=== PATIENT | female | born 1995 | race Caucasian/White ===

== ENCOUNTER → 2022-04-19 | Outpatient (CLI) | payer OTHER, SELFPAY ==
[2022-04-19 15:22] LABS: Absolute Lymphocyte Count 2.11 X10^3/uL (0.83-4.51); Absolute Neutrophil Count 7.7 X10^3/uL (2.0-7.7); Basophil# 0.03 X10^3/uL; Basophil% 0.3 % (0-1); Eosinophil# 0.08 X10^3/uL; Eosinophils% 0.8 % (0-5); Hematocrit 39.8 % (37-47); Hemoglobin 13.5 g/dL (12.0-15.0); Lymphocyte # 2.11 X10^3/ul (0.83-4.51); Mean Corp Hgb Conc 33.9 g/dL (32-36); Mean Corpuscular Hgb 29.3 pg (27.0-32.0); Mean Corpuscular Volume 86.3 fL (81-99); Mean Platelet Vol. 10.1 fl (6.2-12.0); Monocyte# 0.57 X10^3/uL; Monocyte% 5.4 % (0-10); NRBC Flagged by Analyzer 0 % (0-5); Neutrophil # 7.68 X10^3/uL (2.7-7.7); Neutrophil % 72.8 % (47-70); Platelet Count 266 K/mm3 (150-450); RBC Distribution Width CV 12.8 % (11.6-14.6); RBC Distribution Width SD 40.1 fl (35.1-43.9); Red Blood Count 4.61 M/mm3 (4.2-5.4); White Blood Count 10.5 K/mm3 (4.4-11.0)
[2022-04-19 16:55] LABS: HIV - WCH Non-Reactive (Nonreactive); Hepatitis B Surface Antigen Non-Reactive (Nonreactive); Hepatitis C Antibody Non-Reactive (Nonreactive); Rubella IgG Reactive (Nonreactive); Syphilis Antibodies Non-reactive
[2022-04-25 11:26] LABS: Chlamydia By Nucleic Acid AMP Negative (Negative)
[2022-04-25 18:10] LABS: HPV Reflexed? NOT INDICATED
[2022-04-25 18:13] LABS: Gonococcus By Nucleic Acid AMP Negative (Negative)
== END | disposition home or self-care (01) ==
LOC: WOBLAB 15:06
PROVIDERS: PCP Family Medicine; Visit Provider Student in an Organized Health Care Education/Training Program
DX: Z34.81 Encounter for supervision of other normal pregnancy, first trimester (principal); Z12.4 Encounter for screening for malignant neoplasm of cervix; Z11.3 Encounter for screening for infections with a predominantly sexual mode of transmission
CPT/HCPCS: 36415; 85025; 86703; 86762; 86780; 86803; 87086; 87088; 87340; 87491; 87591; 88175; G0145

== ENCOUNTER → 2022-08-25 | Outpatient (CLI) | payer OTHER, SELFPAY ==
[2022-08-25 09:11] LABS: Absolute Lymphocyte Count 2.19 X10^3/uL (0.83-4.51); Basophil# 0.03 X10^3/uL; Basophil% 0.3 % (0-1); Eosinophil# 0.11 X10^3/uL; Eosinophils% 0.9 % (0-5); Hematocrit 37.4 % (37-47); Hemoglobin 12.8 g/dL (12.0-15.0); Lymphocyte # 2.19 X10^3/ul (0.83-4.51); Lymphocyte % 18.3 % (19-41); Mean Corp Hgb Conc 34.2 g/dL (32-36); Mean Corpuscular Hgb 30.3 pg (27.0-32.0); Mean Corpuscular Volume 88.4 fL (81-99); Mean Platelet Vol. 9.9 fl (6.2-12.0); Monocyte# 0.41 X10^3/uL; Monocyte% 3.4 % (0-10); NRBC Flagged by Analyzer 0 % (0-5); Neutrophil # 9.02 X10^3/uL (2.7-7.7); Neutrophil % 75.2 % (47-70); Platelet Count 246 K/mm3 (150-450); RBC Distribution Width CV 13.2 % (11.6-14.6); RBC Distribution Width SD 42.9 fl (35.1-43.9); Red Blood Count 4.23 M/mm3 (4.2-5.4)
[2022-08-25 09:31] LABS: Glucose Challenge Gest 1H 50g 144 mg/dL (70-140)
== END | disposition home or self-care (01) ==
LOC: WOBLAB 08:40
PROVIDERS: PCP Family Medicine; Visit Provider Obstetrics & Gynecology
DX: Z34.82 Encounter for supervision of other normal pregnancy, second trimester (principal)
CPT/HCPCS: 36415; 82950; 85025

== ENCOUNTER → 2022-09-02 | Outpatient (CLI) | payer OTHER, SELFPAY ==
[2022-09-02 09:35] LABS: Glucose GTT-Gestation. Fasting 94 mg/dL (<105)
[2022-09-02 10:38] LABS: Glucose GTT-Gestational 1 Hr 178 mg/dL (<190)
[2022-09-02 12:32] LABS: Glucose GTT-Gestational 2 Hr 159 mg/dL (<165)
[2022-09-02 13:21] LABS: Glucose GTT-Gestational 3 Hr 128 L (<145)
== END | disposition home or self-care (01) ==
LOC: WOBLAB 08:39
PROVIDERS: PCP Family Medicine; Visit Provider Obstetrics & Gynecology
DX: Z34.82 Encounter for supervision of other normal pregnancy, second trimester (principal)
CPT/HCPCS: 36415; 82951; 82952

== ENCOUNTER → 2022-09-23 | Outpatient (CLI) | payer OTHER, SELFPAY ==
[2022-09-23 09:43] LABS: Absolute Lymphocyte Count 2.43 X10^3/uL (0.83-4.51); Basophil# 0.03 X10^3/uL; Basophil% 0.2 % (0-1); Eosinophils% 0.8 % (0-5); Hematocrit 37.8 % (37-47); Hemoglobin 12.9 g/dL (12.0-15.0); Lymphocyte # 2.43 X10^3/ul (0.83-4.51); Lymphocyte % 19.7 % (19-41); Mean Corp Hgb Conc 34.1 g/dL (32-36); Mean Corpuscular Hgb 29.3 pg (27.0-32.0); Mean Corpuscular Volume 85.9 fL (81-99); Mean Platelet Vol. 10.3 fl (6.2-12.0); Monocyte# 0.63 X10^3/uL; Monocyte% 5.1 % (0-10); NRBC Flagged by Analyzer 0 % (0-5); Neutrophil # 8.97 X10^3/uL (2.7-7.7); Neutrophil % 72.8 % (47-70); Platelet Count 265 K/mm3 (150-450); RBC Distribution Width CV 13.1 % (11.6-14.6); RBC Distribution Width SD 40.2 fl (35.1-43.9); White Blood Count 12.3 K/mm3 (4.4-11.0)
[2022-09-23 10:41] LABS: Protein:Creat Ratio 428 mg/g CRE (0-200)
[2022-09-23 11:19] LABS: ALB/GLOB Ratio 0.8 RATIO (0.9-2.4); AST(SGOT) 13 U/L (15-37); Alanine Aminotransfer ALT/SGPT 19 U/L (13-56); Alkaline Phosphatase 109 U/L (45-117); Anion Gap 8 (5-15); BUN 7 mg/dL (7-18); BUN/Creat Ratio 12.1 RATIO (10-20); Calcium,Total 9.1 mg/dL (8.5-10.1); Chloride 107 mmol/L (98-107); Creatinine, Serum 0.58 mg/dL (0.55-1.02); EST Glomerular Filtration Rate 130 mL/min (>60); Est Glom Filt Rate - Afr Amer 157 mL/min (>60); Globulin 3.7 g/dL (2.2-4.2); Glucose 90 mg/dL (74-106); LDH 165 U/L (84-246); Potassium 3.8 mmol/L (3.5-5.1); Protein, Total 6.7 g/dL (6.4-8.2); Sodium Level 137 mmol/L (136-145)
== END | disposition home or self-care (01) ==
LOC: WOBLAB 09:21
PROVIDERS: PCP Family Medicine; Visit Provider Student in an Organized Health Care Education/Training Program
DX: Z34.82 Encounter for supervision of other normal pregnancy, second trimester (principal)
CPT/HCPCS: 36415; 80053; 82570; 83615; 84156; 85025; 86850; 87086; 87088

== ENCOUNTER → 2022-10-19 | Outpatient (CLI) | payer OTHER, SELFPAY ==
[2022-10-19 15:40] LABS: Hematocrit 36.9 % (37-47); Hemoglobin 12.3 g/dL (12.0-15.0); Mean Corp Hgb Conc 33.3 g/dL (32-36); Mean Corpuscular Hgb 28.3 pg (27.0-32.0); Mean Platelet Vol. 10.8 fl (6.2-12.0); Platelet Count 275 K/mm3 (150-450); RBC Distribution Width CV 12.8 % (11.6-14.6); RBC Distribution Width SD 39.1 fl (35.1-43.9); Red Blood Count 4.34 M/mm3 (4.2-5.4); White Blood Count 11.5 K/mm3 (4.4-11.0)
[2022-10-19 15:51] LABS: ALB/GLOB Ratio 0.8 RATIO (0.9-2.4); AST(SGOT) 14 U/L (15-37); Alanine Aminotransfer ALT/SGPT 22 U/L (13-56); Albumin, Serum 3.1 g/dL (3.2-5.0); Alkaline Phosphatase 160 U/L (45-117); Anion Gap 6 (5-15); BUN 6 mg/dL (7-18); BUN/Creat Ratio 10.2 RATIO (10-20); Calcium,Total 9.3 mg/dL (8.5-10.1); Chloride 109 mmol/L (98-107); Creatinine, Serum 0.59 mg/dL (0.55-1.02); EST Glomerular Filtration Rate 128 mL/min (>60); Est Glom Filt Rate - Afr Amer 155 mL/min (>60); Globulin 3.9 g/dL (2.2-4.2); Glucose 91 mg/dL (74-106); LDH 168 U/L (84-246); Potassium 3.8 mmol/L (3.5-5.1); Sodium Level 139 mmol/L (136-145)
== END | disposition home or self-care (01) ==
LOC: WOBLAB 14:00
PROVIDERS: PCP Family Medicine; Visit Provider Student in an Organized Health Care Education/Training Program
DX: Z34.03 Encounter for supervision of normal first pregnancy, third trimester (principal)
CPT/HCPCS: 36415; 80053; 83615; 85027

== ENCOUNTER → 2022-10-24 | Outpatient (CLI) | payer OTHER, SELFPAY ==
[2022-10-24 13:08] LABS: Absolute Lymphocyte Count 2.52 X10^3/uL (0.83-4.51); Absolute Neutrophil Count 8.6 X10^3/uL (2.0-7.7); Basophil# 0.03 X10^3/uL; Basophil% 0.3 % (0-1); Eosinophil# 0.06 X10^3/uL; Eosinophils% 0.5 % (0-5); Hematocrit 35.6 % (37-47); Lymphocyte # 2.52 X10^3/ul (0.83-4.51); Lymphocyte % 21.1 % (19-41); Mean Corp Hgb Conc 33.7 g/dL (32-36); Mean Corpuscular Hgb 28.8 pg (27.0-32.0); Mean Corpuscular Volume 85.4 fL (81-99); Mean Platelet Vol. 10.8 fl (6.2-12.0); Monocyte# 0.67 X10^3/uL; Monocyte% 5.6 % (0-10); NRBC Flagged by Analyzer 0 % (0-5); Neutrophil # 8.56 X10^3/uL (2.7-7.7); Neutrophil % 71.4 % (47-70); Platelet Count 248 K/mm3 (150-450); RBC Distribution Width CV 13.2 % (11.6-14.6); RBC Distribution Width SD 40.8 fl (35.1-43.9); Red Blood Count 4.17 M/mm3 (4.2-5.4)
[2022-10-24 13:29] LABS: ALB/GLOB Ratio 0.9 RATIO (0.9-2.4); AST(SGOT) 15 U/L (15-37); Alanine Aminotransfer ALT/SGPT 18 U/L (13-56); Albumin, Serum 3.1 g/dL (3.2-5.0); Alkaline Phosphatase 165 U/L (45-117); Anion Gap 9 (5-15); BUN 4 mg/dL (7-18); BUN/Creat Ratio 7.4 RATIO (10-20); Calcium,Total 9.5 mg/dL (8.5-10.1); Chloride 108 mmol/L (98-107); Creatinine, Serum 0.54 mg/dL (0.55-1.02); EST Glomerular Filtration Rate 142 mL/min (>60); Est Glom Filt Rate - Afr Amer 172 mL/min (>60); Globulin 3.6 g/dL (2.2-4.2); Glucose 84 mg/dL (74-106); LDH 187 U/L (84-246); Potassium 3.9 mmol/L (3.5-5.1); Protein, Total 6.7 g/dL (6.4-8.2); Sodium Level 139 mmol/L (136-145)
== END | disposition home or self-care (01) ==
LOC: WOBLAB 11:14
PROVIDERS: PCP Family Medicine; Visit Provider Student in an Organized Health Care Education/Training Program
DX: O14.93 Unspecified pre-eclampsia, third trimester (principal); Z3A.00 Weeks of gestation of pregnancy not specified
CPT/HCPCS: 36415; 80053; 83615; 85025

== ENCOUNTER → 2022-10-31 | Outpatient (CLI) | payer OTHER, SELFPAY ==
[2022-10-31 17:16] LABS: Absolute Lymphocyte Count 2.68 X10^3/uL (0.83-4.51); Absolute Neutrophil Count 8.1 X10^3/uL (2.0-7.7); Basophil# 0.04 X10^3/uL; Basophil% 0.3 % (0-1); Eosinophil# 0.08 X10^3/uL; Eosinophils% 0.7 % (0-5); Hematocrit 37.3 % (37-47); Hemoglobin 12.3 g/dL (12.0-15.0); Lymphocyte # 2.68 X10^3/ul (0.83-4.51); Lymphocyte % 22.9 % (19-41); Mean Corpuscular Hgb 27.6 pg (27.0-32.0); Mean Corpuscular Volume 83.8 fL (81-99); Mean Platelet Vol. 11.3 fl (6.2-12.0); Monocyte# 0.64 X10^3/uL; Monocyte% 5.5 % (0-10); NRBC Flagged by Analyzer 0 % (0-5); Neutrophil # 8.09 X10^3/uL (2.7-7.7); Neutrophil % 69.3 % (47-70); Platelet Count 276 K/mm3 (150-450); RBC Distribution Width CV 13.1 % (11.6-14.6); RBC Distribution Width SD 39.5 fl (35.1-43.9); Red Blood Count 4.45 M/mm3 (4.2-5.4); White Blood Count 11.7 K/mm3 (4.4-11.0)
[2022-10-31 17:29] LABS: ALB/GLOB Ratio 0.7 RATIO (0.9-2.4); AST(SGOT) 11 U/L (15-37); Alanine Aminotransfer ALT/SGPT 15 U/L (13-56); Albumin, Serum 2.9 g/dL (3.2-5.0); Alkaline Phosphatase 184 U/L (45-117); Anion Gap 10 (5-15); BUN 4 mg/dL (7-18); BUN/Creat Ratio 6.1 RATIO (10-20); Calcium,Total 8.9 mg/dL (8.5-10.1); Chloride 108 mmol/L (98-107); Creatinine, Serum 0.65 mg/dL (0.55-1.02); EST Glomerular Filtration Rate 114 mL/min (>60); Est Glom Filt Rate - Afr Amer 138 mL/min (>60); Glucose 123 mg/dL (74-106); LDH 159 U/L (84-246); Potassium 3.6 mmol/L (3.5-5.1); Protein, Total 6.9 g/dL (6.4-8.2); Sodium Level 139 mmol/L (136-145)
== END | disposition home or self-care (01) ==
LOC: WOBLAB 16:10
PROVIDERS: PCP Family Medicine; Visit Provider Student in an Organized Health Care Education/Training Program
DX: O14.93 Unspecified pre-eclampsia, third trimester (principal)
CPT/HCPCS: 36415; 80053; 83615; 85025

== ENCOUNTER → 2022-11-08 | Outpatient (CLI) | payer OTHER, SELFPAY ==
[2022-11-08 11:48] LABS: Absolute Lymphocyte Count 2.72 X10^3/uL (0.83-4.51); Absolute Neutrophil Count 9.5 X10^3/uL (2.0-7.7); Basophil# 0.05 X10^3/uL; Basophil% 0.4 % (0-1); Eosinophil# 0.09 X10^3/uL; Eosinophils% 0.7 % (0-5); Hematocrit 38.4 % (37-47); Hemoglobin 12.4 g/dL (12.0-15.0); Lymphocyte # 2.72 X10^3/ul (0.83-4.51); Lymphocyte % 20.6 % (19-41); Mean Corp Hgb Conc 32.3 g/dL (32-36); Mean Corpuscular Hgb 27.4 pg (27.0-32.0); Monocyte# 0.74 X10^3/uL; Monocyte% 5.6 % (0-10); NRBC Flagged by Analyzer 0 % (0-5); Neutrophil # 9.49 X10^3/uL (2.7-7.7); Neutrophil % 71.6 % (47-70); Platelet Count 269 K/mm3 (150-450); RBC Distribution Width CV 13.2 % (11.6-14.6); RBC Distribution Width SD 40.9 fl (35.1-43.9); Red Blood Count 4.52 M/mm3 (4.2-5.4); White Blood Count 13.2 K/mm3 (4.4-11.0)
[2022-11-08 13:19] LABS: ALB/GLOB Ratio 0.9 RATIO (0.9-2.4); AST(SGOT) 16 U/L (15-37); Alanine Aminotransfer ALT/SGPT 16 U/L (13-56); Albumin, Serum 3.3 g/dL (3.2-5.0); Alkaline Phosphatase 194 U/L (45-117); Anion Gap 9 (5-15); BUN 5 mg/dL (7-18); BUN/Creat Ratio 8.8 RATIO (10-20); Calcium,Total 9.8 mg/dL (8.5-10.1); Chloride 105 mmol/L (98-107); Creatinine, Serum 0.57 mg/dL (0.55-1.02); EST Glomerular Filtration Rate 133 mL/min (>60); Est Glom Filt Rate - Afr Amer 161 mL/min (>60); Globulin 3.7 g/dL (2.2-4.2); Glucose 76 mg/dL (74-106); LDH 169 U/L (84-246); Potassium 3.9 mmol/L (3.5-5.1); Sodium Level 136 mmol/L (136-145)
== END | disposition home or self-care (01) ==
LOC: WOBLAB 11:24
PROVIDERS: PCP Family Medicine; Visit Provider Student in an Organized Health Care Education/Training Program
DX: O14.93 Unspecified pre-eclampsia, third trimester (principal)
CPT/HCPCS: 36415; 80053; 83615; 85025

== ENCOUNTER → 2022-11-15 | Outpatient (CLI) | payer OTHER, SELFPAY ==
[2022-11-15 17:22] LABS: Absolute Lymphocyte Count 2.48 X10^3/uL (0.83-4.51); Basophil# 0.03 X10^3/uL; Basophil% 0.3 % (0-1); Eosinophil# 0.04 X10^3/uL; Eosinophils% 0.3 % (0-5); Hemoglobin 11.6 g/dL (12.0-15.0); Lymphocyte # 2.48 X10^3/ul (0.83-4.51); Lymphocyte % 21.6 % (19-41); Mean Corp Hgb Conc 32.2 g/dL (32-36); Mean Corpuscular Hgb 27.2 pg (27.0-32.0); Mean Corpuscular Volume 84.3 fL (81-99); Mean Platelet Vol. 11.2 fl (6.2-12.0); Monocyte# 0.75 X10^3/uL; Monocyte% 6.5 % (0-10); NRBC Flagged by Analyzer 0 % (0-5); Neutrophil # 8.04 X10^3/uL (2.7-7.7); Neutrophil % 70.3 % (47-70); Platelet Count 238 K/mm3 (150-450); RBC Distribution Width CV 13.4 % (11.6-14.6); Red Blood Count 4.27 M/mm3 (4.2-5.4); White Blood Count 11.5 K/mm3 (4.4-11.0)
[2022-11-15 18:45] LABS: ALB/GLOB Ratio 0.9 RATIO (0.9-2.4); AST(SGOT) 12 U/L (15-37); Alanine Aminotransfer ALT/SGPT 13 U/L (13-56); Alkaline Phosphatase 194 U/L (45-117); Anion Gap 6 (5-15); BUN 6 mg/dL (7-18); BUN/Creat Ratio 8.6 RATIO (10-20); Calcium,Total 9.1 mg/dL (8.5-10.1); Chloride 109 mmol/L (98-107); EST Glomerular Filtration Rate 105 mL/min (>60); Est Glom Filt Rate - Afr Amer 127 mL/min (>60); Globulin 3.5 g/dL (2.2-4.2); Glucose 99 mg/dL (74-106); LDH 169 U/L (84-246); Potassium 3.9 mmol/L (3.5-5.1); Protein, Total 6.5 g/dL (6.4-8.2); Sodium Level 140 mmol/L (136-145)
[2022-11-15 19:09] LABS: Syphilis Antibodies Non-reactive
== END | disposition home or self-care (01) ==
LOC: WOBLAB 16:56
PROVIDERS: PCP Family Medicine; Visit Provider Student in an Organized Health Care Education/Training Program
DX: Z34.83 Encounter for supervision of other normal pregnancy, third trimester (principal)
CPT/HCPCS: 36415; 80053; 83615; 85025; 86780; 87081

== ENCOUNTER 2022-11-21 19:00 | Inpatient (IN) | payer OTHER, SELFPAY ==
[2022-11-21 19:26] VITALS: BMI 38.9
[2022-11-21 19:41] LABS: Absolute Lymphocyte Count 2.98 X10^3/uL (0.83-4.51); Absolute Neutrophil Count 8.7 X10^3/uL (2.0-7.7); Basophil# 0.02 X10^3/uL; Basophil% 0.2 % (0-1); Eosinophil# 0.04 X10^3/uL; Eosinophils% 0.3 % (0-5); Hematocrit 36.5 % (37-47); Hemoglobin 11.9 g/dL (12.0-15.0); Lymphocyte # 2.98 X10^3/ul (0.83-4.51); Lymphocyte % 23.9 % (19-41); Mean Corp Hgb Conc 32.6 g/dL (32-36); Mean Corpuscular Hgb 27.2 pg (27.0-32.0); Mean Corpuscular Volume 83.5 fL (81-99); Mean Platelet Vol. 11.4 fl (6.2-12.0); Monocyte% 4.8 % (0-10); NRBC Flagged by Analyzer 0 % (0-5); Neutrophil # 8.72 X10^3/uL (2.7-7.7); Neutrophil % 69.8 % (47-70); Platelet Count 257 K/mm3 (150-450); RBC Distribution Width CV 13.6 % (11.6-14.6); RBC Distribution Width SD 41.4 fl (35.1-43.9); Red Blood Count 4.37 M/mm3 (4.2-5.4); White Blood Count 12.5 K/mm3 (4.4-11.0)
[2022-11-21 20:10] VITALS: BP 146/92; PULSE 115; TEMP 37.1
[2022-11-21] MEDS: miSOPROStol 25 MCG TABLET VAGINAL (20:21)
[2022-11-21 20:32] LABS: ALB/GLOB Ratio 0.8 RATIO (0.9-2.4); AST(SGOT) 11 U/L (15-37); Alanine Aminotransfer ALT/SGPT 13 U/L (13-56); Albumin, Serum 2.9 g/dL (3.2-5.0); Alkaline Phosphatase 195 U/L (45-117); Anion Gap 9 (5-15); BUN 7 mg/dL (7-18); BUN/Creat Ratio 10.3 RATIO (10-20); Chloride 108 mmol/L (98-107); Creatinine, Serum 0.68 mg/dL (0.55-1.02); EST Glomerular Filtration Rate 109 mL/min (>60); Est Glom Filt Rate - Afr Amer 132 mL/min (>60); Estimated Creatinine Clearance 109.84 ml/min; Globulin 3.5 g/dL (2.2-4.2); Glucose 108 mg/dL (74-106); LDH 143 U/L (84-246); Potassium 3.7 mmol/L (3.5-5.1); Protein, Total 6.4 g/dL (6.4-8.2); Sodium Level 140 mmol/L (136-145)
[2022-11-22] VITALS (55 sets, daily range): BP systolic 102–147; BP diastolic 52–105; PULSE 64–117; TEMP 36.8–38.8; O2SAT 94–100
[2022-11-22] MEDS: Lactated Ringers 1,000 ML 50 ML IV (00:38)
[2022-11-22] MEDS: LACTATED RINGERS 500 ML 999 ML IV ×4 (00:38→13:02)
[2022-11-22] MEDS: fentaNYL-bupivacaine (epidural) 100 ML BAG EPIDURAL ×4 (06:35→20:54)
--- NOTE | 2022-11-22 07:10 | PCM.HP.BLA ---
History and Physical Date of Admission: 11/21/22 Chief complaint: Induction of labor preeclampsia without severe features History present illness: 27-year-old G1, P0 at 37 weeks and 2 days with ALEXIS 12/11/2022 arrived on 11/21/2022 at 7 PM for induction of labor with preeclampsia without severe features. Today with no headache visual changes, chest pain, shortness of breath, nausea vomiting, right upper quadrant pain. Patient states good movement. is complicated by preeclampsia without severe features Obstetric history: G1: Current Past medical history: Preeclampsia without severe features Medications: vitamin Allergies: No known drug allergies Past surgical history: Tailbone surgery Family history: Denies his DVT or PE Social history: Former smoker, denies alcohol or drug use Review of systems: Besides above pertinent positives a full review of systems was performed and found to be negative Physical exam: Vitals: Pulse 105 SPO2 98% on room air General: Normal-appearing no acute distress HEENT: Normocephalic atraumatic no cervical adenopathy Cardiac/respiratory: No use of accessory muscles, nonlabored breathing Abdomen: Soft, nontender, gravid Extremities: No peripheral edema normal peripheral pulses Psych: Normal affect normal demeanor nonpressured speech Labs: White blood cell count 12.5 hemoglobin 11.9 hematocrit 36.5% platelets 257. Sodium 140 potassium 3.7 creatinine 0.68 total bilirubin 0.3 AST 11 ALT 13 LDH 143. Blood type O- antibody negative. Assessment plan: 27-year-old G1, P0 at 37 weeks and 2 days that arrived for induction of labor yesterday for preeclampsia without severe features. Patient overnight was Cytotec induction. Received 1 dose of Cytotec then switch to Pitocin after being called by RN for frequent contractions. Patient with discomfort with contractions elected for epidural. Patient now comfortable with epidural. Overnight called by nursing with a severe range blood pressure, nursing stated nonpersistent. Patient asymptomatic. We will continue to monitor and if persistent severe range blood pressures or symptomatic will treat appropriately. Continue to titrate Pitocin. GBS negative
[2022-11-22] MEDS: Lactated Ringers 1,000 ML 200 ML IV ×4 (08:11→23:22)
[2022-11-22] MEDS: Oxytocin 15 Units/NS 250ml 15 UNITS/250 ML IV.SOLN 2 UNITS IV (08:11)
[2022-11-22] MEDS: Ondansetron 4 MG/2 ML Vial IV (12:59)
[2022-11-22] MEDS: 0.9% Saline Lock 10 ML Syringe IV (13:00)
[2022-11-22] MEDS: 0.9% Normal Saline Single 100 ML IV.SOLN. INTRA-UTER (17:33)
--- NOTE | 2022-11-22 17:43 | PCM.PN.OB ---
Subjective Subjective Patient seen and examined. Comfortable with epidural. Objective Data Objective Data Vital Signs: Vital Signs Temp Pulse BP Pulse Ox 99.0 F 106 H 140/81 H 97 11/22/22 17:08 11/22/22 17:08 11/22/22 17:08 11/22/22 17:09 Weight: 106.141 kg Body Mass Index (BMI) 38.9 Intake & Output: Intake and Output for Last 24 Hours 11/20/22 11/21/22 11/22/22 23:59 23:59 23:59 Intake Total 3736.47 / 3736.47 Output Total 1000 / 1000 Balance 2736.47 / 2736.47 Lab / Micro Data Result Diagrams: 11/21/22 19:30 11/21/22 20:00 Labs: Laboratory Results - last 24 hr 11/21/22 19:30: WBC 12.5 H, RBC 4.37, Hgb 11.9 L, Hct 36.5 L, MCV 83.5, MCH 27.2, MCHC 32.6, RDW Std Deviation 41.4, RDW Coeff of Millie 13.6, Plt Count 257, MPV 11.4, Immature Gran % (Auto) 1.000 H, Neut % (Auto) 69.8, Lymph % (Auto) 23.9, Bollinger % (Auto) 4.8, Eos % (Auto) 0.3, Baso % (Auto) 0.2, Absolute Neuts (auto) 8.7 H, Absolute Lymphs (auto) 2.98, Nucleated RBC % 0 11/21/22 19:30: Blood Type O NEGATIVE, Antibody Screen TNP 11/21/22 19:30: Antibody Screen NEGATIVE 11/21/22 20:00: Sodium 140, Potassium 3.7, Chloride 108 H, Carbon Dioxide 23.0, Anion Gap 9, BUN 7, Creatinine 0.68, Estim Creat Clear Calc 109.84, Est GFR (MDRD) Af Amer 132, Est GFR (MDRD) Non-Af 109, BUN/Creatinine Ratio 10.3, Glucose 108 H, Calcium 9.0, Total Bilirubin 0.30, AST 11 L, ALT 13, Alkaline Phosphatase 195 H, Lactate Dehydrogenase 143, Total Protein 6.4, Albumin 2.9 L, Globulin 3.5, Albumin/Globulin Ratio 0.8 L Physical Exam Const alert, oriented x3 and no apparent distress Resp normal respiratory effort Cardio regular rate GI soft to palpation and non-tender Inspection: gravid Narrative: 1.5/60/-3, Choudhury bulb placed Extremity no pedal edema Neuro moves all extremities, no focal motor deficits and no sensory deficits noted NST FHR Rate Baby A Baseline: 145 Variability:: Moderate Accelerations:: 15 x 15 Decelerations:: None FHR Category:: Category I Assessment & Plan (1) Pre-eclampsia: PLAN: 27-year-old G1 at 37/2 weeks admitted for induction of labor for preeclampsia without severe features. Patient comfortable with epidural. Category 1 tracing. Choudhury bulb placed. Plan for AROM in morning. Plan reviewed with patient and bedside nurse. All questions answered.
[2022-11-22] MEDS: Acetaminophen 500 MG Tablet PO (20:54)
[2022-11-23] VITALS (47 sets, daily range): BP systolic 109–156; BP diastolic 55–90; PULSE 76–208; RESP 12–24; TEMP 36.3–39.9; O2SAT 92–100
[2022-11-23] MEDS: fentaNYL-bupivacaine (epidural) 100 ML BAG EPIDURAL (01:29)
[2022-11-23] MEDS: Acetaminophen 500 MG Tablet PO (02:50)
[2022-11-23] MEDS: LACTATED RINGERS 500 ML 999 ML IV (02:52)
[2022-11-23] MEDS: Sodium Citrate/Citric Acid 30 ML UDC PO (05:36)
--- NOTE | 2022-11-23 05:59 | PN.OBGYN_ITS ---
Subjective Subjective Patient very uncomfortable with contractions. Has hot spot left hip and a lot of rectal pressure with contractions. No longer tolerating. Objective Data Objective Data Vital Signs: Vital Signs Temp Pulse BP Pulse Ox 100.9 F H 129 H 121/74 H 95 11/23/22 05:57 11/23/22 05:55 11/23/22 05:55 11/23/22 05:55 Weight: 106.141 kg Body Mass Index (BMI) 38.9 Intake & Output: Intake and Output for Last 24 Hours 11/21/22 11/22/22 11/23/22 23:59 23:59 23:59 Intake Total 5539.80 / 5539.80 1767.725 / 1767.725 Output Total 1780 / 1780 Balance 3759.80 / 3759.80 1767.725 / 1767.725 Lab / Micro Data Attestation: I reviewed the patient's lab results. Result Diagrams: 11/21/22 19:30 11/21/22 20:00 Physical Exam Const alert and oriented x3 Constitutional Narrative: Uncomfortable with contractions HEENT normocephalic Resp normal respiratory effort GI soft to palpation and non-tender Inspection: gravid Extremity Extremity Narrative: Plus 1 edema Neuro moves all extremities, no focal motor deficits and no sensory deficits noted NST FHR Rate Baby A Baseline: 155 Variability:: Moderate Accelerations:: 15 x 15 Decelerations:: None (rare variable) FHR Category:: Category I Assessment & Plan (1) Pre-eclampsia: PLAN: 27-year-old G1 at 37/3 weeks admitted for induction of labor for pre eclampsia without severe features. Now with diagnosis of chorioamnionitis based on persistent elevated maternal fever, maternal tachycardia, intermittent tachycardia. Patient is no longer tolerating contractions. Desires primary section. We will plan for primary section in an urgent, nonemergent fashion. All risk, benefits, alternatives discussed with the patient. Risk include but are not limited to: Risk of bleeding to the point transfusion fusion, infection, injury to surrounding tissue including bowel/bladder potentially requiring prolonged Choudhury catheter use, VTE, ICU admission. Patient understands that she has infection at this time which places her at a greater risk with section. Will give preoperative antibiotics: Ampicillin 2 g, clindamycin 900 mg, azithromycin 500 mg. She did receive gentamicin 5 mg/kg around 2 AM today which is dosed every 24 hours. We will continue antibiotics for 24 hours postoperatively. All questions were answered. Consent signed.
[2022-11-23] MEDS: Clindamycin 900 MG/50 ML BAG 75 MG IV ×3 (06:31→21:50)
--- NOTE | 2022-11-23 07:18 | EX.PCM.OBRPT ---
Details Operative Information Date of Procedure: 11/23/22 Pre-Operative Diagnosis: Lemos intrauterine , preeclampsia without severe features, chorioamnionitis, elective section Post-Operative Diagnosis: [place] intrauterine , preeclampsia without severe features, chorioamnionitis, elective section Indications Narrative: 27-year-old G1, P0 at 37/3 weeks who was admitted for induction of labor for Pre-eclampsia without severe features. Complicated by chorioamnionitis. Patient not tolerating labor, desired primary section. All risk, benefits, alternatives discussed patient risk include were not limited to: Risk of bleeding to the point of transfusion, infection, and treated surrounding tissue including bowel/bladder potentially requiring prolonged Choudhury catheter use, VTE, ICU admission. Patient were consented. Procedure Type: low transverse Type of Anesthesia: Spinal Estimated Blood Loss: 700cc Fluids Replaced: 1500cc Findings Description of Procedure: Patient taken the operating room and spinal placed. Patient placed in the supine position with left lateral tilt. Prepped and draped in the usual sterile fashion. Pfannenstiel skin incision made with scalpel and carried down through subcutaneous tissue. Fascia nicked on either side of the midline and extended bilaterally. Shoaib clamps placed on the superior fascial edge which was tented up and underlying rectus muscles were dissected off bluntly and sharply at midline. Shoaib clamps moved to the inferior fascial edge and dissection of rectus muscles were completed in a similar fashion. Hemostats utilized separate rectus muscle superiorly and peritoneum entered sharply with Metzenbaum scissors and extended bluntly. Bladder blade placed. Vesicouterine peritoneum identified and bladder flap created with Metzenbaum scissors. Low transverse uterine incision made with scalpel and extended bluntly. Hand placed into the uterine cavity and had elevated to the level of the hysterotomy. With the assistance of gentle fundal pressure head delivered followed by body. No nuchal cord. Cord clamped and cut and baby handed to nursing. Manual extraction of placenta. Uterus exteriorized and cleared of all clots with lap. Small extension at the left edge of the hysterotomy noted, closed with suture. Hysterotomy closed with a running locking stitch in a vertical imbricating stitch. Some oozing noted at the extension, which was stopped with 2 [id number]. Hysterotomy hemostatic. Uterus replaced into the abdomen. Hysterotomy inspected, 1 [id number] stitch placed at the left corner. Hysterotomy hemostatic. Peritoneum closed with a running stitch. Fascia closed with running stitch. Subcutaneous tissue reapproximated. Skin closed with running subcuticular stitch. At the end of procedure all needle, lap, sponge counts were correct. Urine output: 50 cc clear urine. A Gender: Male (1 minute): 9 (5 minute): 9 Complications Complications: None
--- NOTE | 2022-11-23 07:20 | PLAC_PTH ---
PATIENT: JENNIFER MURRY LOC: [facility] U#:[id number] AGE/SX: 27/F ROOM: WP005 RE11/21/[address]: Dr. Palmira Mccall DO : 1995 BED: 1 DIS: 11/25/2022 SPEC #: [id number] RECD: 11/23/22 08:11 STATUS: JOE REMilagro #: [id number] WILLIAM: 11/23/22 07:[address]: Palmira Mccall DEPT: SURGICAL PATHOLOGY RECD BY: Cecy Estrada ENTERED: 11/23/22 10:56 SP TYPE: PLACENTA OTHR DR: Dr. Chucky Hammond MD Tissues: Placenta, NOS Procedures: Surgery Specimen Level V HEADER OPERATION: Primary section PRE-OP DIAGNOSIS: Delivery TISSUE SUBMITTED: Placenta MICROSCOPIC DIAGNOSIS Placenta: Placental disc - third trimester placenta (583 gm). - Focal area of intraparenchymal hemorrhage (1.5 cm in greatest dimension). Membranes - no pathologic diagnosis. Umbilical cord - three blood vessels and no pathologic diagnosis. SJ:manolo 11/25/2022 MICROSCOPIC DESCRIPTION Slides are reviewed. GROSS DESCRIPTION SPECIMEN: PLACENTA / CLINICAL INFORMATION: A. Weight: 3.55 kg B. Gestational Age: 37 weeks C. Sex: Male PLACENTAL WEIGHT (POST FIXATION): 583 gm PLACENTAL DIMENSIONS: 18 x 17 x 3 cm PLACENTAL SHAPE: Usual ovoid PLACENTAL WEIGHT FOR GESTATIONAL AGE: Within 10-99th percentile (over/under percentile) MEMBRANES - Present A. Insertion: Marginal B. Site of rupture from edge: At edge of placental disc C. Color of membrane: Ryan-calles D. Abnormalities: None UMBILICAL CORD - Present A. Color: Ryan-calles B. Insertion: Eccentric C. Length: 54 cm D. Diameter: 1.5 cm E. Number of vessels: Three F. Abnormalities: None PLACENTAL DISC - Present A. Color of surface: Ryan-calles B. surface abnormalities: None C. Maternal cotyledons: Intact with minimal tears D. Attached retro placental clot: No clot E. Cut surface: Dark red and spongy F. Lesions: Serial sections reveal a firm, ryan-white lesion in mid portion of placenta measuring 1.5 x 0.6 cm. G. Separate clot: Absent SECTIONS SUBMITTED: 1. Umbilical cord ( end notched) 2. Umbilical cord, placental end 3. Membrane roll 4. Placental disc, and maternal surfaces, lesion 5. Placental disc, and maternal surfaces 6. Placental disc, and maternal surfaces AM:manolo 11/24/2022 TC:5 CPT: 39133
[2022-11-23] MEDS: Oxytocin 15 Units/NS 250ml 15 UNITS/250 ML IV.SOLN 83 UNITS IV (07:30)
[2022-11-23] MEDS: Acetaminophen 500 MG Tablet 1000 MG PO ×3 (08:10→20:29)
[2022-11-23] MEDS: Ketorolac 30 MG/ML Syringe IV ×3 (08:10→20:29)
[2022-11-23 08:12] LABS: Pathology Specimen OB SEE PATHOLOGY REPORT
--- NOTE | 2022-11-23 10:15 | NURSING ---
Report received from Gretel DILLON, taking over pt care at this time.
[2022-11-23] MEDS: Lactated Ringers 1,000 ML 100 ML IV ×2 (10:21→21:49)
[2022-11-23] MEDS: Senna/Docusate Sodium 1 Tablet PO (14:09)
--- NOTE | 2022-11-23 18:30 | NURSING ---
Pt requesting to wait until visitors leave at 1900 to take out harris catheter.
[2022-11-23] MEDS: Enoxaparin 40 MG/0.4 ML Syringe SC (18:46)
[2022-11-24] MEDS: Acetaminophen 500 MG Tablet 1000 MG PO ×4 (01:55→20:54)
[2022-11-24] MEDS: Ketorolac 30 MG/ML Syringe IV (01:56)
[2022-11-24] MEDS: 0.9% Saline Lock 10 ML Syringe IV ×3 (01:56→07:37)
[2022-11-24 01:58] VITALS: PULSE 94; RESP 18; O2SAT 98
--- NOTE | 2022-11-24 03:54 | PCM.PN.OB ---
Subjective Subjective No overnight complaints. Denies headache, vision change, chest pain, shortness of breath, nausea vomit, right upper quadrant pain. Objective Data Objective Data Vital Signs: Vital Signs Temp Pulse Resp BP Pulse Ox O2 Del Method 98.8 F 94 18 119/72 98 Room Air 11/23/22 23:55 11/24/22 01:58 11/24/22 01:58 11/23/22 23:55 11/24/22 01:58 11/24/22 01:58 Oxygen Delivery Method Room Air Weight: 234 lb Body Mass Index (BMI) 38.9 Intake & Output: Intake and Output for Last 24 Hours 11/22/22 11/23/22 11/24/22 23:59 23:59 23:59 Intake Total 5539.80 / 5539.80 4522.725 / 4522.725 443.33 / 443.33 Output Total 1780 / 1780 1100 / 1100 200 / 200 Balance 3759.80 / 3759.80 3422.725 / 3422.725 243.33 / 243.33 Lab / Micro Data Result Diagrams: 11/21/22 19:30 11/21/22 20:00 Labs: Laboratory Results - last 24 hr 11/23/22 09:00: Screen NEGATIVE, Baby's Blood Type O POSITIVE, Baby's ARAMIS NEGATIVE Physical Exam Const alert, oriented x3, no apparent distress, average body habitus, healthy appearing and well nourished HEENT normocephalic and moist oral mucous membranes Eyes PERRL Resp normal respiratory effort, no retractions and no use of accessory muscles GI GI Narrative: Soft, nontender, bandage clean dry and intact Extremity normal to inspection, full ROM and no clubbing, cyanosis or edema Neuro moves all extremities and no focal motor deficits Psych mental status grossly normal, affect normal, speech normal and activity/motor behavior normal Assessment & Plan (1) delivery delivered: PLAN: Postop day 1 status post primary section elective. Pain well controlled. Preeclampsia without severe features, on no medications. We will continue to monitor blood pressures. Suspected chorioamnionitis status post antibiotics for 24 hours. We will continue to monitor possibly home tomorrow or Monday
[2022-11-24 04:00] VITALS: BP 122/66; PULSE 94; RESP 17; TEMP 36.2; O2SAT 97
[2022-11-24 04:30] LABS: Hemoglobin 9.4 g/dL (12.0-15.0); Mean Corp Hgb Conc 33.6 g/dL (32-36); Mean Corpuscular Hgb 28.5 pg (27.0-32.0); Mean Corpuscular Volume 84.8 fL (81-99); Mean Platelet Vol. 11.4 fl (6.2-12.0); Platelet Count 192 K/mm3 (150-450); RBC Distribution Width CV 14.2 % (11.6-14.6); RBC Distribution Width SD 43.6 fl (35.1-43.9); White Blood Count 19.7 K/mm3 (4.4-11.0)
[2022-11-24 05:14] LABS: ALB/GLOB Ratio 0.6 RATIO (0.9-2.4); AST(SGOT) 12 U/L (15-37); Alanine Aminotransfer ALT/SGPT 11 U/L (13-56); Alkaline Phosphatase 138 U/L (45-117); Anion Gap 6 (5-15); BUN 12 mg/dL (7-18); BUN/Creat Ratio 13.9 RATIO (10-20); Calcium,Total 8.1 mg/dL (8.5-10.1); Chloride 109 mmol/L (98-107); Creatinine, Serum 0.87 mg/dL (0.55-1.02); EST Glomerular Filtration Rate 82 mL/min (>60); Est Glom Filt Rate - Afr Amer 99 mL/min (>60); Estimated Creatinine Clearance 85.85 ml/min; Globulin 3.1 g/dL (2.2-4.2); Glucose 95 mg/dL (74-106); LDH 177 U/L (84-246); Potassium 3.8 mmol/L (3.5-5.1); Protein, Total 5.1 g/dL (6.4-8.2); Sodium Level 142 mmol/L (136-145)
[2022-11-24] MEDS: Clindamycin 900 MG/50 ML BAG 75 MG IV (05:38)
[2022-11-24 05:41] VITALS: PULSE 99; RESP 18; O2SAT 97
[2022-11-24] MEDS: Ibuprofen 600 MG Tablet PO ×3 (08:41→20:53)
[2022-11-24 09:54] VITALS: BP 129/75; PULSE 94; RESP 16; TEMP 36.2; O2SAT 98
[2022-11-24 14:00] VITALS: BP 126/88; PULSE 105; RESP 18; TEMP 36.6; O2SAT 98
[2022-11-24] MEDS: Enoxaparin 40 MG/0.4 ML Syringe SC (14:32)
[2022-11-24] MEDS: Senna/Docusate Sodium 1 Tablet PO (14:33)
[2022-11-24 21:08] VITALS: BP 135/84; PULSE 84; RESP 16; TEMP 36.8; O2SAT 96
[2022-11-25 01:00] VITALS: BP 129/79; PULSE 94; RESP 14; TEMP 36.6; O2SAT 96
[2022-11-25] MEDS: Acetaminophen 500 MG Tablet 1000 MG PO ×2 (02:45→09:59)
[2022-11-25] MEDS: Ibuprofen 600 MG Tablet PO ×2 (02:45→09:59)
--- NOTE | 2022-11-25 07:14 | PN.OBGYN_ITS ---
Subjective Subjective Patient feeling well without complaints. Incision is sore, but pain is controlled. Lochia minimal. Breast-feeding going well. Objective Data Objective Data Vital Signs: Vital Signs Temp Pulse Resp BP Pulse Ox O2 Del Method 97.9 F 94 14 129/79 H 96 Room Air 11/25/22 01:00 11/25/22 01:00 11/25/22 01:00 11/25/22 01:00 11/25/22 01:00 11/25/22 01:00 Oxygen Delivery Method Room Air Weight: 106.141 kg Body Mass Index (BMI) 38.9 Intake & Output: Intake and Output for Last 24 Hours 11/23/22 11/24/22 11/25/22 23:59 23:59 23:59 Intake Total 4522.725 / 4522.725 650.58 / 650.58 Output Total 1100 / 1100 600 / 600 Balance 3422.725 / 3422.725 50.58 / 50.58 Lab / Micro Data Attestation: I reviewed the patient's lab results. Result Diagrams: 11/24/22 04:18 11/24/22 04:40 Physical Exam Const alert, oriented x3 and no apparent distress HEENT normocephalic Head and Scalp: atraumatic Neck full ROM Resp normal respiratory effort Cardio regular rate GI normal to inspection, nondistended, normoactive bowel sounds and non-tender GI Narrative: Uterus 2 cm below umbilicus, dressing clean and dry Back/Spine normal ROM Extremity normal to inspection Extremity Narrative: Minimal pedal edema Neuro no focal motor deficits and no sensory deficits noted Psych mental status grossly normal and affect normal Assessment & Plan (1) delivery delivered: PLAN: Postop day 2 status post elective primary section. Complicated by preeclampsia without severe features: Blood pressures been well controlled, asymptomatic. Chorioamnionitis: Afebrile since approximately 06 100 on 11/23/2022. No fundal tenderness. Reviewed signs and symptoms of infection: Foul-smelling lochia, worsening fundal tenderness, fevers and chills. Reviewed signs and symptoms of severe preeclampsia: Headache with vision changes, chest p ain or shortness of breath, right upper quadrant pain. We will repeat labs this morning, plan home today. Blood pressure check next week, incision check in 2 weeks. (2) Pre-eclampsia: (3) Chorioamnionitis:
--- NOTE | 2022-11-25 07:17 | DCINST_ITS ---
Discharge Instructions Diet Discharge Diet: No restrictions Activity Discharge Activity: Return to Normal Activity and May Shower May resume sexual activity in: 4-6 weeks Weight Bearing Status: Weight bearing as tolerated Lifting Restrictions: No greater than 25 pounds Dressing / Incision Call your doctor if your incision/area has: Continuous Slow Oozing, Increased Redness and Swelling at the incision site Call your doctor if you observe: Fever of 101 or Higher, Change in Color, Inability to urinate, Using more than 1 pad per hour, Shortness of breath, Dizziness, Swelling in the ankles, Chest pain and Calf discomfort Remove Dressing in: 1 week Cleanse incision/area with: Soap & Water and Keep Dressing Clean & Dry Follow Up Care Please Follow Up With: Palmira Mccall DO When: 1 week BP check, 2-week and 6-week visit Test Results: Test results from this visit will be discussed in further detail at your follow- up appointment, if applicable. Discharge Plan Admission Admit Date/Time: 11/21/22 19:00 Primary Reason for Your Visit: section Attending Provider: Palmira Mccall Primary Care Provider: Chucky Hammond Discharge Orders/Prescriptions Prescriptions: New oxycodone 5 mg tablet 5 mg PO Q6H PRN (Reason: pain (scale score 7-10)) 5 Days Qty: 20 0RF Continued prenat.vits,gissell,[id number]-rbil-rtgkv Tablet 1 tab PO DAILY Referrals / Follow Up: Chucky Hammond MD [Primary Care Provider] - Disposition Disposition (needs filled in before D/C Order can be placed): Home, Self Care
--- NOTE | 2022-11-25 07:20 | PCM.DC.SUM ---
Providers Date of Admission: 11/21/22 Primary Care Physician: Dr. Chucky Hammond MD Reason For Visit: PRIMARY C SECTION Diagnosis Discharge Diagnosis (1) delivery delivered: Status: Acute Code(s): O82 - Encounter for delivery without indication Plan: Postop day 2 status post elective primary section. Complicated by preeclampsia without severe features: Blood pressures been well controlled, asymptomatic. Chorioamnionitis: Afebrile since approximately 06 100 on 11/23/2022. No fundal tenderness. Reviewed signs and symptoms of infection: Foul-smelling lochia, worsening fundal tenderness, fevers and chills. Reviewed signs and symptoms of severe preeclampsia: Headache with vision changes, chest pain or shortness of breath, right upper quadrant pain. We will repeat labs this morning, plan home today. Blood pressure check next week, incision check in 2 weeks. (2) Pre-eclampsia: Status: Acute Code(s): O14.90 - Unspecified pre-eclampsia, unspecified trimester (3) Chorioamnionitis: Status: Acute Code(s): O41.1290 - Chorioamnionitis, unspecified trimester, not applicable or unspecified Medications at Discharge Home Medications prenat.vits,gissell,fvh-gqpp-bqwvr 1 tab PO DAILY Check with primary doctor 07/22/22 oxycodone 5 mg tablet 5 mg PO Q6H PRN pain (scale score 7-10) 5 days #20 tabs 11/25/22 Hospital Course Operations section Summary of Care Provided Hospital Course: 27-year-old female admitted on 11/21/2022 for induction of labor for preeclampsia without severe features. Patient was induced with Cytotec and then Pitocin. She received a Choudhury bulb as well. Had spontaneous rupture membranes. Patient developed chorioamnionitis on 11/22/2022. She elected for section on the morning of 11/23/2022 due to intolerance of labor, was uncomfortable despite epidural. She received 24 hours of antibiotics. She has been afebrile since approximately 0600 on 11/23/2022. Blood pressures have been stable. Patient stable for discharge on day 2. Will be discharged with a blood pressure check in 1 week and incision check in 2 weeks. Physical Exam Const alert, oriented x3 and no apparent distress HEENT normocephalic Head and Scalp: atraumatic Neck full ROM Resp normal respiratory effort Cardio regular rate GI normal to inspection, nondistended, normoactive bowel sounds and non-tender GI Narrative: Uterus 2 cm below umbilicus, dressing clean and dry Back/Spine normal ROM Extremity normal to inspection Extremity Narrative: Minimal pedal edema Neuro no focal motor deficits and no sensory deficits noted Psych mental status grossly normal and affect normal Weight / BMI Weight Weight: 106.141 kg Body Mass Index (BMI) 38.9 ABG / Lab / Microbiology Data Result Diagrams: 11/24/22 04:18 11/24/22 04:40 D/C Instructions Discharge Diet: No restrictions May resume sexual activity in: 4-6 weeks Weight Bearing Status: Weight bearing as tolerated Call your doctor if your incision/area has: Continuous Slow Oozing, Increased Redness and Swelling at the incision site Call your doctor if you observe: Fever of 101 or Higher, Change in Color, Inability to urinate, Using more than 1 pad per hour, Shortness of breath, Dizziness, Swelling in the ankles, Chest pain and Calf discomfort Cleanse incision/area with: Soap & Water and Keep Dressing Clean & Dry Please Follow Up With: Palmira Mccall DO When: 1 week BP check, 2-week and 6-week visit Meaningful Use Info Meaningful Use Diagnoses (Choose all that apply): None applicable Discharge Plan Admission Admit Date/Time: 11/21/22 19:00 Primary Reason for Your Visit: section Attending Provider: Palmira Mccall Primary Care Provider: Chucky Hammond Discharge Orders/Prescriptions Prescriptions: New oxycodone 5 mg tablet 5 mg PO Q6H PRN (Reason: pain (scale score 7-10)) 5 Days Qty: 20 0RF Continued prenat.vits,gissell,nys-tims-qthio Tablet 1 tab PO DAILY Referrals / Follow Up: Chucky Hammond MD [Primary Care Provider] - Disposition Disposition (needs filled in before D/C Order can be placed): Home, Self Care
[2022-11-25 08:02] VITALS: BP 140/80; PULSE 89; RESP 16; TEMP 37; O2SAT 98
[2022-11-25] MEDS: Senna/Docusate Sodium 1 Tablet PO (12:07)
[2022-11-25] MEDS: Enoxaparin 40 MG/0.4 ML Syringe SC (12:07)
[2022-11-25 13:45] VITALS: BP 145/88; PULSE 90; RESP 16; TEMP 36.6
== END 2022-11-25 13:45 | disposition home or self-care (01) | DRG 786 ==
PROVIDERS: Obstetrics & Gynecology; Admitting Provider Student in an Organized Health Care Education/Training Program; PCP Family Medicine; Referring Provider Student in an Organized Health Care Education/Training Program; Visit Provider Student in an Organized Health Care Education/Training Program
DX: O14.04 Mild to moderate pre-eclampsia, complicating childbirth (principal); O41.1230 Chorioamnionitis, third trimester, not applicable or unspecified; O76 Abnormality in fetal heart rate and rhythm complicating labor and delivery; Z37.0 Single live birth; Z3A.37 37 weeks gestation of pregnancy; Z87.891 Personal history of nicotine dependence
CPT/HCPCS: 59025; 59050; 80053; 83615; 85025; 85027; 85461; 86850; 86900; 86901; 88307; 99221; 99252; J7120; A4216; G0378; G0463; J2405; J2790